=== PATIENT | female | born 1985 | race Caucasian/White ===

== ENCOUNTER → 2017-01-22 | Outpatient (CLI) | payer MEDICAID ==
[~2017-01-22] MED LIST: ALBUTEROL200 PUFFS/ IH; CIPRO 500MG TA500 MG PO; FLONASE 50 MCG16 GM; HYOSCYAMINE0.125 MG PO; IBUPROFEN800 MG PO; KEFLEX 500MG.500 MG PO; LORTAB 5/3251 TAB PO; LORTAB 500 MG-71 TAB PO; MACROBID 100MG100 MG PO; MELOXICAM15 MG PO; MOTRIN 400MG.400 MG PO; OXYCODONE 5MG TA5 MG PO; PERCOCET 5/3251 EACH PO; PHENERGAN 25MG.25 M1 PO; PRENATAL1 TA3 PO; PROMETHAZINE12.5 M1 PO; TESSALON PERLE200 MG PO
--- NOTE | 2017-01-22 16:39 | RADIOLOGY REPORT PS360 ---
US THYROID HISTORY: THYROIDITIS,GOITER ORDERING PHYSICIAN: Saud Cain MD PATIENT AGE: 31 years COMPARISON: None FINDINGS: Right lobe: 4.9 x 2.3 x 2.4 cm. 2.4 cm x 1.1 cm isoechoic nodule along the posterior aspect of the thyroid gland and may be related to a parathyroid adenoma. 3 mm cyst along the lower pole. Left lobe: 4.8 x 1.5 x 1.9 cm. Ill-defined area of isoechogenicity along the lower pole 2 x 0.8 cm and may be related to a nodule or parathyroid gland. This is very ill-defined millimeters represent heterogeneous echogenicity. Overall not significant change. Isthmus: Thickened at 9 mm. A 6 mm isoechoic nodule is present within the isthmus unchanged IMPRESSION: Overall no change mildly enlarged thyroid with areas of heterogeneous echogenicity which could be due to small nodules, thyroid gland, or just heterogeneous echogenicity. These areas are ill-defined and unchanged
== END ==
LOC: RAD 14:47
DX: E06.9 Thyroiditis, unspecified (principal); E04.9 Nontoxic goiter, unspecified